=== PATIENT | female | born 1990 | race Caucasian/White ===

== ENCOUNTER → 2023-07-19 06:32 | Day surgery (SDC) | payer OTHER, SELFPAY | LOC: GI 06:32 | PROVIDERS: ATTENDING PHYSICIAN Internal Medicine | DX: K64.4 Residual hemorrhoidal skin tags (principal); K62.5 Hemorrhage of anus and rectum; Z87.19 Personal history of other diseases of the digestive system; Z98.890 Other specified postprocedural states | CPT/HCPCS: 45378 ==